=== PATIENT | male | born 1965 | race Two or more races ===

== ENCOUNTER 2024-06-19 15:44 | Emergency (ER) | payer OTHER ==
[~2024-06-19] VITALS: Ht 177.8 cm; Wt 79.4 kg
[2024-06-19 16:01] VITALS: BP 116/75; O2SAT 97
[2024-06-19] MEDS ORDERED: NORVASC10 MG PO (16:04)
[2024-06-19] MEDS ORDERED: FAMOTIDINE/PF 20 MG in 0.9 % SODIUM CHLORIDE 8 ML IV PUSH STA (16:46)
[2024-06-19] MEDS ORDERED: 0.9 % SODIUM CHLORIDE 1,000 ML IV SCH (17:00)
[2024-06-19] MEDS ORDERED: DIPHENOXYLATE HCL/ATROPINE 1 UDTAB TABLET PO ONE (17:00)
[2024-06-19] MEDS ORDERED: ONDANSETRON HCL 2 MG/ML VIAL IV ONE (17:00)
[2024-06-19] MEDS ORDERED: METRONIDAZOLE/SODIUM CHLORIDE 500 MG/100 ML PIGGYBACK IV ONE (17:00)
[2024-06-19 17:12] LABS: HEMATOCRIT 47.3 % (39.0-48.0); HEMOGLOBIN 16.4 g/dL (13-16.00); MEAN CELL VOLUME 90.4 fL (80.0-100.00); MEAN CORPUSCULAR HEMOGLOBIN 31.2 pg (27.00-32.0); MEAN CORPUSCULAR HGB CONC 34.5 g/dl (32.0-36.0); PLATELET COUNT 162 K/uL (150-450); RED BLOOD COUNT 5.24 M/uL (4.00-6.00); RED CELL DISTRIBUTION WIDTH 13.8 % (11.5-14.5)
[2024-06-19 17:50] LABS: ALBUMIN 3.6 gm/dL (3.4-5.0); BILIRUBIN TOTAL 0.78 mg/dL (0.3-1.2); CREATININE SERUM 1.38 mg/dL (0.70-1.30); GFR 52.74; GLOBULINA 4.1 G/DL (2.4-3.5); POTASSIUM 3.29 mEq/L (3.5-5.1); TOTAL PROTEIN 7.7 gm/dL (6.4-8.2)
[2024-06-19] MEDS ORDERED: ZOFRAN8 MG PO (19:05)
[2024-06-19] MEDS ORDERED: PEPCID AC20 MG PO (19:05)
[2024-06-19] MEDS ORDERED: CIPRO500 MG PO (19:05)
[2024-06-19] MEDS ORDERED: INTESTINEX680 M1 PO (19:05)
== END 2024-06-19 20:45 | disposition home or self-care (01) ==
LOC: ER 15:46
PROVIDERS: General Practice
DX: K52.89 Other specified noninfective gastroenteritis and colitis (principal); I10 Essential (primary) hypertension

== ENCOUNTER 2024-10-05 10:59 | Emergency (ER) | payer OTHER ==
[~2024-10-05] VITALS: Ht 175.3 cm; Wt 81.6 kg
[~2024-10-05 10:59] MED LIST: CIPRO500 MG PO; INTESTINEX680 M1 PO; NORVASC10 MG PO; PEPCID AC20 MG PO; ZOFRAN8 MG PO
[2024-10-05] MEDS ORDERED: KETOROLAC TROMETHAMINE 30 MG VIAL IM ONE (12:45)
[2024-10-05] MEDS ORDERED: 0.9 % SODIUM CHLORIDE 1,000 ML IV ONE (12:45)
[2024-10-05 13:17] LABS: HEMATOCRIT 44.3 % (39.0-48.0); MEAN CELL VOLUME 91.4 fL (80.0-100.00); MEAN CORPUSCULAR HEMOGLOBIN 30.9 pg (27.00-32.0); MEAN CORPUSCULAR HGB CONC 33.8 g/dl (32.0-36.0); PLATELET COUNT 157 K/uL (150-450); RED BLOOD COUNT 4.84 M/uL (4.00-6.00); RED CELL DISTRIBUTION WIDTH 13.4 % (11.5-14.5)
[2024-10-05 13:25] LABS: ALBUMIN 3.8 gm/dL (3.4-5.0); BILIRUBIN TOTAL 1.25 mg/dL (0.3-1.2); CALCIUM 9.2 mg/dL (8.5-10.1); CREATININE SERUM 1.02 mg/dL (0.70-1.30); GFR 74.75; GLOBULINA 4.2 G/DL (2.4-3.5); POTASSIUM 4.38 mEq/L (3.5-5.1)
[2024-10-05 15:42] LABS: PH,URINE 5.5 (5.0-8.0); URINE APPEARANCE Clear; URINE BILIRRUBIN Negative (NEGATIVE); URINE BLOOD Negative; URINE COLOR Yellow; URINE GLUCOSE Negative (NEGATIVE); URINE KETONE Trace (NEGATIVE); URINE LEUKOCYTE Small; URINE NITRATE Negative; URINE PROTEIN Negative (NEGATIVE)
[2024-10-05 15:46] LABS: URINE BACTERIA 13.4 uL (0.0-1933); URINE EPITHELIAL CELLS 2.2 uL (0.0-38.8)
[2024-10-05 16:12] LABS: URINE CAST 0.44 uL (0.0-1.40); URINE RBC 1.1 uL (0.0-20.8)
[2024-10-05] MEDS ORDERED: ACETAMINOPHEN WITH CODEINE 1 UDTAB TABLET PO ONE (18:15)
[2024-10-05] MEDS ORDERED: AZITHROMYCIN 500 MG TABLET PO ONE (18:15)
== END 2024-10-05 18:42 | disposition home or self-care (01) ==
LOC: ER 11:02
PROVIDERS: General Practice
DX: N45.1 Epididymitis (principal); I86.1 Scrotal varices; L72.0 Epidermal cyst; I10 Essential (primary) hypertension